=== PATIENT | male | born 2000 | race Caucasian/White ===

== ENCOUNTER → 2021-08-06 | Day surgery (SDC) | payer OTHER ==
[~2021-08-06] VITALS: Ht 172.7 cm; Wt 132.9 kg
[~2021-08-06] MED LIST: ALLER-FEX180 MG PO; LEVOFLOXACIN500 MG PO; OMEPRAZOLE 20MG20 MG PO; ONDANSETRON HCL4 MG PO; ONDANSETRON ODT8 MG PO; OXYCODONE-APAP1 TAB PO; VICODIN 10/3251 EACH PO
[2021-08-06 09:41] LABS: HCT 49.6 % (42.0-52.0); HGB 17.1 g/dl (13.2-18.0); MCH 30.3 pg (25.0-31.0); MCHC 34.5 g/dL (32.0-36.0); MCV 87.9 fL (78.0-100.0); MPV 10.1 fL (6.0-9.5); RBC 5.64 M/uL (4.70-6.00); RDW 12.4 % (11.5-14.0); WBC 23.5 K/uL (4.0-10.5)
[2021-08-06 10:07] LABS: BILIRUBIN - TOTAL 1.5 mg/dL (0.2-1.0); BUN/CREAT RATIO (CALC) 15.1 RATIO; CREATININE 0.93 mg/dL (0.67-1.17); GLOBULIN (CALCULATION) 4.6 g/dL; POTASSIUM 4.1 mmol/L (3.5-5.1); TOTAL PROTEIN 7.6 g/dL (6.4-8.2)
== END | disposition home or self-care (01) ==
LOC: FAS 08:53
PROVIDERS: Surgery
DX: K80.10 Calculus of gallbladder with chronic cholecystitis without obstruction (principal); E66.01 Morbid (severe) obesity due to excess calories; E03.9 Hypothyroidism, unspecified; Z68.41 Body mass index [BMI] 40.0-44.9, adult; Z20.822 Contact with and (suspected) exposure to COVID-19; Z79.2 Long term (current) use of antibiotics; Z79.899 Other long term (current) drug therapy
CPT/HCPCS: 36415; 80053; 87070; 87075; C1758; J1170; J1956; J2250; J2370; J2704; J3010; J7120; Q9967; U0002

== ENCOUNTER 2021-08-15 03:33 | Emergency (ER) | payer OTHER ==
[2021-08-15 04:38] LABS: BASOPHIL 0.6 % (0-2); EOSINOPHIL 5.1 % (0-5); HCT 43.4 % (42.0-52.0); HGB 14.3 g/dl (13.2-18.0); LYMPHOCYTE 12.5 % (15-48); MCH 29.4 pg (25.0-31.0); MCHC 32.9 g/dL (32.0-36.0); MCV 89.3 fL (78.0-100.0); MONOCYTE 6.2 % (0-12); NEUTROPHIL 74.6 % (41-80); NRBC 0; PLT 571 K/uL (150-400); RBC 4.86 M/uL (4.70-6.00); RDW 11.9 % (11.5-14.0)
[2021-08-15 04:39] LABS: BILIRUBIN NEGATIVE (NEGATIVE); BLOOD 3+ Ery/uL (NEGATIVE); CLARITY CLEAR (CLEAR); COLOR YELLOW (YELLOW); GLUCOSE (U) NORMAL (NORMAL); LEUKOCYTES NEGATIVE Leu/uL (NEGATIVE); NITRITE NEGATIVE (NEGATIVE); PROTEIN 1+ mg/dL (NEGATIVE); SPECIFIC GRAVITY >=1.030 (1.001-1.030); UROBILINOGEN 0.2 mg/dL (0.2-1.0)
[2021-08-15 04:56] LABS: ALBUMIN 3.2 g/dL (3.4-5.0); BILIRUBIN - TOTAL 0.4 mg/dL (0.2-1.0); BUN/CREAT RATIO (CALC) 13.5 RATIO; CREATININE 1.11 mg/dL (0.67-1.17); GLOBULIN (CALCULATION) 5.2 g/dL; POTASSIUM 3.7 mmol/L (3.5-5.1); TOTAL PROTEIN 8.4 g/dL (6.4-8.2)
[2021-08-15 04:59] LABS: URINARY RBC TNTC
[2021-08-15 05:00] LABS: BACTERIA TRACE
[2021-08-15 05:01] LABS: MUCOUS MODERATE
[2021-08-15] MEDS ORDERED: IBUPROFEN800 MG PO (08:18)
[2021-08-15] MEDS ORDERED: NORCO 5-325 TA1 EACH PO (08:18)
[2021-08-15] MEDS ORDERED: FLOMAX0.4 MG PO (08:18)
== END 2021-08-15 09:10 | disposition home or self-care (01) ==
LOC: FER 03:33
PROVIDERS: Emergency Medicine Emergency Medical Services
DX: N20.1 Calculus of ureter (principal); K85.90 Acute pancreatitis without necrosis or infection, unspecified
CPT/HCPCS: 36415; 80053; 81001; 83605; 83690; 85025; J1170; J1885; J2405; J7030